=== PATIENT | female | born 1965 | race American Indian/Alaskan Native ===

== ENCOUNTER 2016-11-19 09:22 | Outpatient (CLI) | payer OTHER ==
--- NOTE | 2016-11-19 10:42 | Mammography Report ---
Screening mammogram: Routine views demonstrates asymmetrically distributed heterogeneously dense fibroglandular pattern. In the central right breast there is a grouping of pleomorphic appearing calcifications. The findings are not otherwise remarkable. CAD used. Impressions: Indeterminate right calcifications. Recommendations: This patient's prior exams are being requested for comparison. If there is no followup report within the next 30 days magnification views of the right breast calcifications are recommended. BI-RADS CATEGORY: 0 = Needs additional imaging evaluation ACR BI-RADS MAMMOGRAPHIC CODES: 0 = Needs additional imaging evaluation; 1 = Negative; 2 = Benign; 3 = Probably benign; 4 = Suspicious; 5 = Malignant; 6 = Known biopsy-proven malignancy COMMENT: 1. Dense breast tissue, i.e., adenosis, fibrocystic changes, etc., may obscure an underlying neoplasm. 2. Approximately 10% of cancers are not detected with mammography. 3. A negative mammography report should not delay biopsy if a clinically suspicious mass is present.
== END 2016-11-19 09:23 | disposition home or self-care (01) ==
LOC: MAMMO 09:22
PROVIDERS: ATTEND Obstetrics & Gynecology
DX: Z12.31 Encounter for screening mammogram for malignant neoplasm of breast (principal)
CPT/HCPCS: 77067; G0202

== ENCOUNTER 2017-10-24 12:05 | Emergency (ER) | payer OTHER ==
--- NOTE | 2017-10-24 13:31 | Emergency Department Report ---
Blank Doc - Documentation Documentation: Patient is 52 years old female presented to the ER complaining of right breast pain and swelling for the last 2 weeks. Patient stated that she had an abnormal mammogram last year but she failed to follow up with her primary care physician. On examination right breast is red and tender to bulb patient with significant erythema. There is a great possibility this might be an inflammatory carcinoma of the breast. Patient needed further evaluation. I started patient on some analgesic and I order a right breast ultrasound.
[2017-10-24] MEDS ORDERED: CLEOCIN 900 MG/50 mL 900 MG/50 ML BAG IV ONE (13:33)
[2017-10-24] MEDS ORDERED: ZOFRAN IV ONE (13:33)
[2017-10-24] MEDS ORDERED: NACL 0.9% 1000 ML 1,000 ML IV ONE (13:33)
[2017-10-24] MEDS ORDERED: SUBLIMAZE IV ONE (14:00)
--- NOTE | 2017-10-24 15:10 | Ultrasound Report ---
RIGHT BREAST ULTRASOUND: 10/24/17 12:05:00 CLINICAL: The patient presented from the ER with a right breast mass and right breast erythema and tenderness. She had a screening mammogram on 11/19/16 but did not return for the recommended additional mammographic views of calcifications. A mammogram is not been performed today because the patient is being seen through the emergency department. COMPARISON: 11/19/16 screening mammogram. FINDINGS: Ultrasound of the right breast (including all four quadrants and the retroareolar area) was performed and demonstrated a solid heterogeneous hypoechoic mass contiguous to the skin and adjacent to the nipple at 3 o'clock. It measures 2.8 x 3.5 x 2.7 cm. According to the technologist, the scan of the right breast is erythematous in the lower inner quadrant and adjacent to the palpable mass. The nipple is slightly retracted. A complex cyst versus hypoechoic mass at 6 o'clock 1 cm from the nipple measures 6 x 7 x 5 mm and an irregular hypoechoic mass at 9 o'clock 3 cm from the nipple measures 7 x 5 x 3 mm. Ultrasound of the right axilla demonstrates a suspicious lymph node with focal cortical thickening. The lymph node measures 2.0 x 1.2 x 1.1 cm. IMPRESSION: 1. A suspicious heterogeneous solid or complex cystic mass near the nipple at 3 o'clock measuring 3.5 cm. It is particularly suspicious for malignancy based on the mammographic calcifications that were identified on the screening mammogram. However, abscess is also a possibility. 2. Less suspicious mass at 9 o'clock 3 cm from the nipple measuring 7 mm and a less suspicious complex cyst versus solid mass at 6 o'clock measuring 6 mm. 3. A single suspicious right axillary lymph node. BI-RADS 4--Suspicious RECOMMENDATION: 1. Referral to a breast specialist for aspiration/biopsy of the palpable right breast mass with differential considerations above tumor and/or abscess. 2. A right diagnostic mammogram as an outpatient. 3. Consider ultrasound-guided needle biopsy of the right axillary lymph node at the time of intervention for the right breast mass.
[2017-10-24 18:22] VITALS: BP 111/66
--- NOTE | 2017-10-24 18:25 | Emergency Department Report ---
ED General Adult HPI - General Chief complaint: Urogenital-Female Stated complaint: RT BREAST SWOLLEN PAINFUL Time Seen by Provider: 10/24/17 13:19 Source: patient, RN notes reviewed Mode of arrival: Ambulatory Limitations: No Limitations - History of Present Illness Initial comments: This is a 52-year-old female. The patient is previously unknown to this provider. Her primary care doctor is Dr. Mohr. She presents to the ER with right breast pain, swelling, redness. Patient reports having an outpatient mammogram last year which she thinks was interpreted as abnormal, but is not certain. Her pain is sharp, and increases with palpation, range of motion, decreases with rest. No fevers, chills, chest pain, shortness of breath, intractable nausea or vomiting. She has no other complaints at this time. -: Gradual, week(s) Location: chest (right breast) Severity scale (0 -10): 4 Quality: aching Improves with: other Worsens with: other Associated Symptoms: rash. denies: confusion, chest pain, cough, diaphoresis, fever/chills, headaches, loss of appetite, malaise, nausea/vomiting, shortness of breath, syncope, weakness - Related Data Previous Rx's Medication Instructions Recorded Last Taken Type Acetaminophen [Tylenol Arthritis] 650 mg PO Q6HR PRN #30 tablet.er 10/24/17 Unknown Rx Clindamycin HCl 300 mg PO QID #20 capsule 10/24/17 Unknown Rx Ibuprofen [Motrin] 600 mg PO Q8H PRN #30 tablet 10/24/17 Unknown Rx oxyCODONE [Roxicodone] 5 mg PO Q6HR PRN #15 tablet 10/24/17 Unknown Rx Allergies Allergy/AdvReac Type Severity Reaction Status Date / Time No Known Allergies Allergy Unverified 11/19/16 09:22 ED Review of Systems ROS: Stated complaint: RT BREAST SWOLLEN PAINFUL Other details as noted in HPI Comment: All other systems reviewed and negative ED Past Medical Hx - Past Medical History Previous Medical History?: No - Surgical History Past Surgical History?: Yes Additional Surgical History: tummy Kendall larson section. - Social History Smoking Status: Current Every Day Smoker Substance Use Type: None - Medications Home Medications: Home Medications Medication Instructions Recorded Confirmed Last Taken Type Acetaminophen [Tylenol Arthritis] 650 mg PO Q6HR PRN #30 tablet.er 10/24/17 Unknown Rx Clindamycin HCl 300 mg PO QID #20 capsule 10/24/17 Unknown Rx Ibuprofen [Motrin] 600 mg PO Q8H PRN #30 tablet 10/24/17 Unknown Rx oxyCODONE [Roxicodone] 5 mg PO Q6HR PRN #15 tablet 10/24/17 Unknown Rx ED Physical Exam - General Limitations: No Limitations General appearance: alert, in no apparent distress - Head Head exam: Present: atraumatic, normocephalic - Eye Eye exam: Present: normal appearance, EOMI - ENT ENT exam: Present: normal exam, normal orophraynx, mucous membranes moist, normal external ear exam - Neck Neck exam: Present: normal inspection, full ROM - Respiratory Respiratory exam: Present: normal lung sounds bilaterally, other (on the right breast, there is erythema around the nipple, and surrounding erythema around the area. There is no fluctuance. No axillary adenopathy. Escorted by nurse EUNICE THOMAS). Absent: respiratory distress, chest wall tenderness - Cardiovascular Cardiovascular Exam: Present: regular rate, normal rhythm, normal heart sounds. Absent: systolic murmur, diastolic murmur, rubs, gallop - GI/Abdominal GI/Abdominal exam: Present: soft, normal bowel sounds. Absent: distended, tenderness, guarding, rebound, rigid, pulsatile mass - Extremities Exam Extremities exam: Present: normal inspection, full ROM, normal capillary refill. Absent: pedal edema, joint swelling, calf tenderness - Back Exam Back exam: Present: normal inspection, full ROM. Absent: paraspinal tenderness , vertebral tenderness - Neurological Exam Neurological exam: Present: alert, oriented X3, CN II-XII intact, normal gait. Absent: motor sensory deficit - Psychiatric Psychiatric exam: Present: normal affect, normal mood - Skin Skin exam: Present: warm, rash, erythema ED Course Vital Signs 10/24/17 10/24/17 10/24/17 12:46 17:54 17:55 Temperature 98.3 F Pulse Rate 93 H Respiratory 16 18 16 Rate Blood Pressure 114/65 Blood Pressure [Left] O2 Sat by Pulse 100 100 Oximetry 10/24/17 18:17 Temperature 98.9 F Pulse Rate 76 Respiratory 18 Rate Blood Pressure Blood Pressure 111/66 [Left] O2 Sat by Pulse 98 Oximetry ED Medical Decision Making - Radiology Data Radiology results: report reviewed, image reviewed Breast ultrasound demonstrates suspicious lesion, abscess versus neoplasm. - Medical Decision Making Differential diagnosis, including but not limited to: Abscess, neoplasm Assessment and plan: 52-year-old female with a history of abnormal mammogram last year, now with lesion on the breast that is suspicious for malignancy. She is afebrile with reassuring vital signs and is tolerating oral feeds. Patient was extensively counseled on need to follow up with outpatient primary care and breast specialist for biopsy and tissue confirm diagnosis. Patient reports she is reliable to follow-up. She will be discharged with pain medication, and empiric antibiotic therapy, although based on the history and physical exam, I favor neoplasm over infectious etiology. Critical care attestation.: If time is entered above; I have spent that time in minutes in the direct care of this critically ill patient, excluding procedure time. ED Disposition Clinical Impression: Breast pain Disposition: [id number] TO HOME OR SELFCARE Is pt being admited?: No Does the pt Need Aspirin: No Condition: Good Instructions: Mammogram (ED), Breast Mass (ED) Additional Instructions: Take the pain medication, antibiotic therapy as directed. Follow up with an outpatient plastic surgeon or breast surgeon for biopsy and definitive diagnosis. Not following up as soon as possible or as recommended may result in undiagnosed tumor, cancer, malignancy. Dr. Pro is a local plastic surgeon. Dr. Stafford is a local plastic surgeon. Dr. Pieter Bundy is a local breast specialist. Dr. Crawford is a local systems software specialist. Return to the ER right away with new pain, worsened pain, migration of pain, fevers, chills, lethargy, irritability, projectile vomiting, change in mental status, confusion, inability to tolerate liquid feeds. Referrals: DANIAL MOHR DO [Primary Care Provider] - 3-5 Days CHARMAINE VAUGHN MD [Staff Physician] - 3-5 Days VIDAL PRO II, MD [Referring] - 3-5 Days KRYSTEN STAFFORD MD [Staff Physician] - 3-5 Days STEVE CRAWFORD MD [Staff Physician] - 3-5 Days
[2017-10-24 19:01] LABS: Basophils % (Auto) 0.5 % (0.0-1.8); Eosinophils # (Auto) 0.1 K/mm3 (0.0-0.4); Hematocrit 37.7 % (30.3-42.9); Hemoglobin 12.7 gm/dl (10.1-14.3); Lymphocytes # (Auto) 3.2 K/mm3 (1.2-5.4); Lymphocytes % (Auto) 32.7 % (13.4-35.0); Mean Corpuscular HGB Conc 34 % (30-34); Mean Corpuscular Hemoglobin 31 pg (28-32); Mean Corpuscular Volume 91 fl (79-97); Monocytes # (Auto) 0.8 K/mm3 (0.0-0.8); Monocytes % (Auto) 8.2 % (0.0-7.3); Platelet Count 286 K/mm3 (140-440); Red Blood Count 4.15 M/mm3 (3.65-5.03); Red Cell Distribution Width 15.5 % (13.2-15.2)
[2017-10-24 19:33] LABS: Alanine Aminotransferase 7 units/L (7-56); Albumin 3.7 g/dL (3.9-5); BUN/Creatinine Ratio 14; Blood Urea Nitrogen 7 mg/dL (7-17); Calcium 8.5 mg/dL (8.4-10.2); Hemolysis Index 17
== END 2017-10-24 21:23 | disposition home or self-care (01) ==
LOC: ED 12:05
DX: N64.4 Mastodynia (principal); F17.200 Nicotine dependence, unspecified, uncomplicated
CPT/HCPCS: 36415; 76641; 80053; 85025; 96365; 96375; 99284; J2405; J3010; J7030